=== PATIENT | female | born 1970 | race African-American/Black ===

== ENCOUNTER 2016-10-22 16:07 | Observation (INO) | payer MEDICARE, OTHER ==
--- NOTE | ~2016-10-22 | DS ---
Unit #: [id number] #: [id number] Patient: ERA MCCORD [id number] [facility] [address] [facility]. [place], [place] [address] [id number] MR#: [id number] NAME: ERA MCCORD. ROOM: 564 Age: 45 Sex: F Admission Date: 10/22/2016 : 1970 Discharge Date: Attending Physician: Cathryn Crystal M.D. Primary Care Physician: Bola Pollard M.D. DISCHARGE SUMMARY CHIEF COMPLAINT Chest pain. HISTORY OF PRESENT ILLNESS Ms. 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 She works out on a regular basis and maintains significant sinus bradycardia. She has gone through some recent trauma at home, but despite her regular working out and the trauma, she has not experienced any chest pain. She is admitted with chest pain, which occurred first on the night of 10/22. She awoke breathing heavily, having right-sided chest pain, which radiated from the front of her chest straight through to the back. It was associated with nausea and diaphoresis and lasted about 10 minutes. She then took a shower, went to work as a hairdresser, worked all day and experienced on and off right-sided chest discomfort. She tried some omeprazole and some eructation, which seemed to help a little bit. However, this continued during the day, and her boss finally insisted that she present to the emergency room. Upon presentation at [facility], her troponin was normal, her ECG showed no acute ST changes. She was given nitroglycerin, but it dropped her blood pressure significantly but did help her pain. She was also given morphine, which helped her pain. She has had some of these episodes a few weeks ago where she had right-sided chest pain associated with leg swelling, but none of this has been associated with edema, nor has it been relieved by rest. She has not had any PND, orthopnea, syncope or pre-syncope. PAST MEDICAL HISTORY Fasting blood glucose is high here at [facility]. No history of hypertension or dyslipidemia. 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 PAST SURGICAL HISTORY Reports none. SOCIAL HISTORY Works as a hairdresser. Smokes 1 cigarette per day. Very rare alcohol. FAMILY HISTORY Negative for premature atherosclerotic disease. MEDICATIONS 1. Imdur has been given here but is going to be discontinued. Unit #: [id number] #: [id number] Patient: ERA MCCORD 2. Lipitor 40 mg a day. 3. Metoprolol was stopped. REVIEW OF SYSTEMS As per history of present illness. Otherwise, as stated below. GENERAL: No recent fever or chills. No recent weight change. ENDOCRINE: Negative for thyroid disease. HEENT: No auditory or visual disturbances. GASTROINTESTINAL: No melena, no hematochezia. RESPIRATORY: She awakens tired frequently and has unusual dreams. CARDIOVASCULAR: Vide supra. GENITOURINARY: No dysuria. No back pain suggestive of nephrolithiasis. NEUROLOGIC: No seizure disorder, recent CVA, or TIA. PSYCHOLOGICAL: No depression. PHYSICAL EXAMINATION GENERAL: Pleasant, alert. No acute distress. VITAL SIGNS: Blood pressure is 96/62, heart rate 52 and regular, respiratory rate 16. SKIN: Warm and dry. No xanthelasma. MUSCULOSKELETAL: No missing digits. Moves easily for evaluation. NEUROLOGICAL: Appropriate mood and affect. Alert and oriented x3. HEENT: Pupils equal, round and reactive. No oral cyanosis. No icterus. NECK: Carotids clear to auscultation with no carotid bruits. Normal carotid upstroke bilaterally. Thyroid is normal in size and texture without masses or tenderness. CHEST: Clear to auscultation with no rales or wheezes. Good effort. CARDIAC: Normal point of maximum impulse. Normal S1 and S2. No S3, S4 or rub. ABDOMEN: No hepatosplenomegaly, masses or tenderness. Normal bowel sounds. No abdominal bruits heard. EXTREMITIES: No clubbing, cyanosis or edema. Excellent posterior tibial and dorsalis pedis pulses. DIAGNOSTIC EVALUATION CARDIOVASCULAR: ECG showed sinus bradycardia. LABORATORY: Fasting glucose 120, creatinine 0.6, potassium 3.7. Hemoglobin is 10.5, white blood count 10.7. Urinalysis not performed. IMPRESSION 1. Musculoskeletal chest pain. Her chest was very tender at the area that was localized to her pain during my evaluation. I think this is because she sleeps on her left-hand side and pulls on her right-sided muscles, especially with working the right-sided muscles all day as a hairdresser. 2. Probable sleep apnea. I think this is the likely cause of her most recent episode of awakening breathing heavily with right-sided chest pain, nausea and diaphoresis. 3. Anemia. No clear cause for this. We will check iron binding studies. PLAN/RECOMMENDATIONS We will get the stress test, but I think she can go home with no additional medications. Her blood pressure is good. After the stress test, we will also have her seen by a sleep apnea specialist to evaluate her for outpatient followup. Unit #: [id number] #: [id number] Patient: ERA MCCORD I am recommending that she obtain followup with Dr. Ed Pollard at [facility] with regard to her anemia. We obtained iron studies here. We are also checking a hemoglobin A1C because of her fasting glucose was 120. Dictated by... Jimenez Reyes M.D. PEDRO/marifer TD: 10/23/2016 12:23 JOB #: [id number] DISCHARGE SUMMARY Page 1 of 1 X Jimenez Reyes MD X DISCHARGE SUMMARY
--- NOTE | ~2016-10-22 | CR72 ---
[facility] A Service of [facility] RADIOLOGY TEXT RESULTS PATIENT: ERA MCCORD LOCATION: [place] [address] : [birth year] UNIT #: [id number] AGE: [address]: CARLI GALICIA MD SEX: F ORDER DR: [id number] [facility] [address] [facility]. [place], [place] [address] [id number] I MR#: [id number] Acc #: [id number] NAME: ERA MCCORD. : 1970 SEX: F STUDY DATE/TIME: 10/22/2016 16:42 UNIT: CEDOF ROOM: 11058 STUDY DESCRIPTION: CR Chest Single View Portable Attending Physician: Carli Galicia M.D. Ordering Physician: Capo Billy M.D. Primary Care Physician: Bola Pollard M.D. MEDICAL IMAGING REPORT This report is preliminary unless electronic signature is present EXAM Portable chest, 10/22 INDICATIONS Chest pain and tightness with heart palpitations that started this morning. History of smoking. COMPARISON 03/09/2016 FINDINGS A single AP portable view of the chest shows both lungs to be clear. The heart is normal in size. The mediastinal contour is normal. No significant bone abnormalities are seen. IMPRESSION Normal portable chest. Dictated by... Lauro Austin Jr., M.D. THIS IS AN ELECTRONICALLY VERIFIED REPORT Lauro Austin Jr., M.D. at 10/23/2016 10:18 AM RLK/alex TD: 10/22/2016 22:46 JOB #: [id number] MEDICAL IMAGING REPORT Page 1 of 1 COPY
--- NOTE | ~2016-10-22 | EKG ---
PATIENT: ERA MCCORD UNIT #: [id number] Ventricular Rate: 50 BPM Atrial Rate: 50 BPM P-R Interval: 158 ms QRS Duration: 76 ms Q-T Interval: 448 ms QTC Calculation(Bezet): 408 ms P [place]: 56 degrees Calculated R [place]: 81 degrees Calculated T [place]: 48 degrees Diagnosis Line: Sinus bradycardia with sinus arrhythmia Diagnosis Line: Otherwise normal ECG Diagnosis Line: When compared with ECG of 22-OCT-2016 16:07, Diagnosis Line: Sinus rhythm is no longer with 2nd degree A-V Diagnosis Line: block (Mobitz I) Diagnosis Line: Criteria for Septal infarct are no longer Present Diagnosis Line: Confirmed by REBECCA ESPARZA, RUFINO ([id number]) on Diagnosis Line: 10/24/2016 1:16:06 PM INTERPRETING MD: GEE
--- NOTE | ~2016-10-22 | TH ---
Unit #: [id number] #: [id number] Patient: ERA MCCORD [id number] [address] [place], [place] [address] [id number] MR#: [id number] NAME: ERA MCCORD. : 1970 SEX: F STUDY DATE/TIME: 10/23/2016 UNIT: [facility] ROOM: 564 STUDY DESCRIPTION: Cardiolite imaging Attending Physician: Cathryn Crystal M.D. Primary Care Physician: Bola Pollard M.D. CARDIOLOGY REPORT EXAM Cardiac stress test, Cardiolite imaging. PROCEDURE The patient received Lexiscan intravenously while at rest, as well as technetium 99m Cardiolite 11.37 and 33.0 mCi at rest and stress respectively. Appropriate views were obtained. FINDINGS The heart rate increased from 59 to 112, blood pressure decreased from 120/63 to 116/60. There was no chest pain. The resting ECG was normal. With stress there was 0.[address] depression in leads 2, 3, AVF, V5 and V6. There were no dysrhythmias or heart block. Perfusion images demonstrate intestinal artifact mainly at stress, but a little less at rest. Otherwise perfusion is normal and equivalent between rest and stress. There is chest wall and breast attenuation artifact present. Planar images demonstrate chest wall and breast attenuation artifact. Left ventricular size is normal. Right ventricular size is normal. No increased lung uptake or patient motion. Summed stress scores is zero. Gated perfusion wall motion analysis demonstrates normal wall motion throughout the myocardium, with end-diastolic volume 67 ml, ejection fraction greater than 65%. IMPRESSION 1. Myocardial perfusion scan demonstrates no ischemia or infarction. 2. Normal wall motion and ejection fraction. 3. Normal heart rate and blood pressure responses. 4. The patient may be discharged home. 5. Recommend sleep study as an outpatient and careful blood pressure control. Dictated by... Jimenez Reyes M.D. Kady TD: 10/24/2016 07:07 JOB #: [id number] Unit #: [id number] #: [id number] Patient: ERA MCCORD CARDIOLOGY REPORT Page 1 of 1 X Jimenez Reyes MD CARDIOLOGY REPORT
--- NOTE | ~2016-10-22 | ST ---
Unit #: [id number] #: [id number] Patient: ERA MCCORD [id number] [address] [address] [id number] I MR#: [id number] NAME: ERA MCCORD : 1970 SEX: F STUDY DATE/TIME: 10/23/2016 UNIT: [facility] ROOM: 564 STUDY DESCRIPTION: Cardiac stress test Attending Physician: Cathryn Crystal M.D. Primary Care Physician: Bola Pollard M.D. CARDIOLOGY REPORT Cardiac stress test results included in Cardiolite imaging report. Dictated by... Jimenez Reyes M.D. PJR/gz TD: 10/24/2016 07:12 JOB #: [id number] CARDIOLOGY REPORT Page 1 of 1 X Jimenez Reyes MD CARDIOLOGY REPORT
--- NOTE | ~2016-10-22 | EKG ---
PATIENT: ERA MCCORD UNIT #: [id number] Ventricular Rate: 50 BPM Atrial Rate: 59 BPM QRS Duration: 90 ms Q-T Interval: 404 ms QTC Calculation(Bezet): 368 ms P [place]: 53 degrees Calculated R [place]: 96 degrees Calculated T [place]: 58 degrees Diagnosis Line: Sinus bradycardia with 2nd degree A-V block Diagnosis Line: (Mobitz I) Diagnosis Line: Rightward axis Diagnosis Line: Septal infarct , age undetermined Diagnosis Line: Abnormal ECG Diagnosis Line: No previous ECGs available Diagnosis Line: Confirmed by CLYDE MENDEZ MD ([id number]) on Diagnosis Line: 10/23/2016 8:48:57 AM INTERPRETING MD: ANDREA ESPARZA
[~2016-10-22 16:07] MED LIST: AUGMENTIN PO; BENADRYL PO; LORTAB 5/500 TA1 TA1; LORTAB 5/500 TA1 TA1 PO
[2016-10-22 16:44] LABS: BASOPHIL# 0.1 X10e3 (0-0.3); BASOPHIL% 0.8 % (0-2.5); EOSINOPHIL% 0.3 % (0.0-7.0); HEMOGLOBIN 10.5 gm/dL (12.0-16.0); LYMPHOCYTE# 3.8 X10e3 (1.0-3.5); LYMPHOCYTE% 32.4 % (17.0-45.0); MEAN CELL VOLUME 93.9 FL (83-96); MEAN CORPUSCULAR HEMOGLOBIN 29.8 PG (28-34); MEAN CORPUSCULAR HGB CONC 31.8 g/dL (30-36); MEAN PLATELET VOLUME 8.1 FL (6.5-11.5); MONOCYTE# 0.7 X10e3 (0-1.0); MONOCYTE% 6.4 % (3.0-12.0); NEUTROPHIL% 60.1 % (40-75); PLATELET COUNT 269 X10e3 (140-420); RED BLOOD COUNT 3.51 X10e (3.90-5.30); RED CELL DISTRIBUTION WIDTH 15.3 % (11.0-15.5); WHITE BLOOD COUNT 11.7 X10e3 (4.0-10.5)
[2016-10-22 16:47] LABS: DIFF IND NO
[2016-10-22 16:56] LABS: PARTIAL THROMBOPLASTIN TIME 26.7 SECONDS (23.5-31.3); PROTHROMBIN TIME (PATIENT) 10.7 SECONDS (9.6-11.5)
[2016-10-22 17:06] LABS: BUN/CREATININE RATIO 13.33; CALCIUM SERUM 9.3 mg/dL (8.4-10.2); CREATININE SERUM 0.6 mg/dL (0.6-1.4); GLOM FILT RATE Estimated 125.8 mL/min (>60); POTASSIUM 3.7 mmol/L (3.5-5.1)
[2016-10-22 17:12] LABS: POC - TROPONIN <0.05 ng/mL (<=0.05)
[2016-10-22] MEDS ORDERED: MELOXICAM15 MG PO (17:33)
[2016-10-22] MEDS ORDERED: HYDROCODON-ACE1 EAC7 PO (17:33)
[2016-10-22] MEDS ORDERED: MULTIVITAMINS1 EAC3 PO (17:34)
[2016-10-22] MEDS ORDERED: OMEPRAZOLE20 M2 PO (17:34)
[2016-10-22] MEDS ORDERED: GABAPENTIN600 MG PO (17:34)
[2016-10-22] MEDS ORDERED: SYNTHROID PO (17:34)
[2016-10-22] MEDS ORDERED: IRON325 MG PO (17:34)
[2016-10-22] MEDS ORDERED: PATIENT'S PHARMACY (17:35)
[2016-10-22 19:09] LABS: POC - CKMB 1.7 ng/mL (0.0-7.9); POC - TROPONIN <0.05 ng/mL (<=0.05)
[2016-10-23 04:07] LABS: %MB 1.4 % (0.0-4.0); MB 1.8 ng/ml
[2016-10-23 08:43] LABS: %MB 1.4 % (0.0-4.0); MB 1.7 ng/ml
[2016-10-23 14:31] LABS: %MB 1.7 % (0.0-4.0); MB 2.3 ng/ml
[2016-10-23 17:54] LABS: CHOLESTEROL 165 mg/dL (0-200); HDL CHOLESTEROL 51 mg/dL (35-95); IRON SERUM 55 ug/dL (28-170); LDL CHOLESTEROL 102 mg/dL (-130); LDL/HDL RATIO 2 RATIO (0-4); TOTAL IRON BINDING CAPACITY 325 ug/dL (269-535); TRANSFERRIN 232 mg/dL (192-382); TRANSFERRIN SATURATION 17 % (20-50); TRIGLYCERIDES 58 mg/dL (10-160)
== END 2016-10-23 22:00 | disposition home or self-care (01) ==
LOC: CED 16:07 → CEDOF 18:45 → C5C 19:16 → CED 19:16 → CEDOF 19:16 → C5C 10-23 07:54 → CEDOF 10-23 18:20 → CED 10-23 18:20 → C5C 10-23 18:20 → CEDOF 10-23 18:20 → C5C 10-23 22:00
PROVIDERS: Emergency Medicine; Internal Medicine Interventional Cardiology
DX: R07.89 Other chest pain (principal); F17.210 Nicotine dependence, cigarettes, uncomplicated; D64.9 Anemia, unspecified
CPT/HCPCS: 71010; 78452; 80048; 80061; 82550; 82553; 82728; 82947; 83036; 83540; 83550; 83880; 84443; 84484; 85025; 85610; 85730; 93005; 93017; 93306; 96374; 99284; 99285; A9500; G0378; J2270; J2405; J2550; J2785